=== PATIENT | male | born 1990 | race Caucasian/White ===

== ENCOUNTER 2017-09-21 11:13 | Inpatient (IN) | payer MEDICAID ==
[~2017-09-21] VITALS: Ht 180.3 cm; Wt 73.0 kg
[2017-09-21] MEDS ORDERED: morphine 4 MG/ML inj SYRINge IV ONE (12:00)
[2017-09-21] MEDS ORDERED: piperacillin/tazo 3.375gm/50ml 50 ML IV ONE (12:00)
[2017-09-21 12:27] LABS: BASOPHILS # (AUTO) 0.1 X10'3 (0-0.2); BASOPHILS % (AUTO) 0.5 % (0-1); EOSINOPHILS # (AUTO) 0.5 X10'3 (0-0.9); EOSINOPHILS % (AUTO) 2.8 % (0-6); HEMATOCRIT 44.2 % (42.0-52.0); HEMOGLOBIN 14.8 g/dl (14.0-17.9); LYMPHOCYTES # (AUTO) 1.7 X10'3 (1.1-4.8); LYMPHOCYTES % (AUTO) 10.4 % (21-51); MEAN CORPUSCULAR HEMOGLOBIN 28.4 PG (27.0-31.0); MEAN CORPUSCULAR HGB CONC 33.5 % (33.0-36.5); MEAN CORPUSCULAR VOLUME 84.6 FL (78-98); MEAN PLATELET VOLUME 7.4 FL (7.4-10.4); MONOCYTES % (AUTO) 6.2 % (2-12); NEUTROPHILS # (AUTO) 13.3 X10'3 (1.8-7.7); NEUTROPHILS % (AUTO) 80.1 % (42-75); PLATELET COUNT 303 X10'3 (140-440); RED BLOOD COUNT 5.22 X10'6 (4.70-6.10); WHITE BLOOD COUNT 16.6 X10'3 (4.5-11.0)
[2017-09-21 12:58] LABS: ALANINE AMINOTRANSFERASE 32 U/L (12-78); ALBUMIN 3.1 G/DL (3.4-5.0); ALBUMIN/GLOBULIN RATIO 0.7 (1.1-1.5); ALKALINE PHOSPHATASE 89 IU/L (46-116); ANION GAP 8 (8-16); ASPARTATE AMINO TRANSFERASE 19 U/L (10-37); BILIRUBIN,TOTAL 0.4 MG/DL (0.1-1.0); BLOOD UREA NITROGEN 7 MG/DL (7-18); BUN/CREATININE RATIO 7.2 (5.4-32.0); CHLORIDE 102 MMOL/L (99-107); CREATININE 0.97 MG/DL (0.60-1.10); GLUCOSE 112 MG/DL (70-104); MAGNESIUM 1.7 MG/DL (1.5-2.4); POTASSIUM 3.9 MMOL/L (3.5-5.1); SODIUM 140 MMOL/L (135-145); TOTAL CARBON DIOXIDE 29.8 MMOL/L (24-32); TOTAL PROTEIN 7.4 G/DL (6.4-8.2); eGFR > 90 ML/MIN
[2017-09-21] MEDS ORDERED: mag hydrox/Alum hydrox/simeth 30ml oral suspension PO PRN (13:30)
[2017-09-21] MEDS ORDERED: ondansetron/PF 4mg/2ml inj IV PRN (13:30)
[2017-09-21] MEDS ORDERED: magnesium hydroxide 30ml (MOM) UD suspension PO PRN (13:30)
[2017-09-21] MEDS ORDERED: acetaminophen 325mg tablet PO PRN (13:30)
[2017-09-21] MEDS ORDERED: morphine 4 MG/ML inj SYRINge IV PRN (13:30)
[2017-09-21] MEDS ORDERED: HYDROcodone/acetaminophen 5mg/325mg tablet PO PRN (13:30)
[2017-09-21 13:41] LABS: ETHANOL < 0.010 GM/DL (0.0-0.010)
[2017-09-21] MEDS: normal saline 1000ml 1,000 ML IV SCH ×2 (14:13→20:55)
[2017-09-21] MEDS: HYDROcodone/acetaminophen 10/325mg tab PO PRN ×2 (15:15→20:58)
[2017-09-21] MEDS: ceFAZolin 1GM/D5W- ADD-VANTAGE 50 ML IV SCH (15:15)
[2017-09-21] MEDS ORDERED: NO HOME MEDS (17:00)
[2017-09-21 18:30] VITALS: BP 120/65
[2017-09-21] MEDS: docusate sod 100mg capsule PO SCH (20:00)
[2017-09-21 22:30] VITALS: BP 123/73
[2017-09-22] MEDS: ceFAZolin 1GM/D5W- ADD-VANTAGE 50 ML IV SCH (00:19)
[2017-09-22] MEDS: HYDROcodone/acetaminophen 10/325mg tab PO PRN ×4 (05:16→22:52)
[2017-09-22 06:00] VITALS: BP 99/49
[2017-09-22 06:52] LABS: BASOPHILS % (AUTO) 0.4 % (0-1); EOSINOPHILS # (AUTO) 0.6 X10'3 (0-0.9); EOSINOPHILS % (AUTO) 4.7 % (0-6); HEMATOCRIT 43.4 % (42.0-52.0); HEMOGLOBIN 14.6 g/dl (14.0-17.9); LYMPHOCYTES # (AUTO) 1.6 X10'3 (1.1-4.8); MEAN CORPUSCULAR HEMOGLOBIN 28.6 PG (27.0-31.0); MEAN CORPUSCULAR HGB CONC 33.8 % (33.0-36.5); MEAN CORPUSCULAR VOLUME 84.6 FL (78-98); MEAN PLATELET VOLUME 7.6 FL (7.4-10.4); MONOCYTES # (AUTO) 1.1 X10'3 (0-0.9); MONOCYTES % (AUTO) 9.2 % (2-12); NEUTROPHILS # (AUTO) 8.7 X10'3 (1.8-7.7); NEUTROPHILS % (AUTO) 72.7 % (42-75); PLATELET COUNT 281 X10'3 (140-440); RED BLOOD COUNT 5.12 X10'6 (4.70-6.10); RED CELL DISTRIBUTION WIDTH 12.6 % (11.5-14.5); WHITE BLOOD COUNT 11.9 X10'3 (4.5-11.0)
[2017-09-22 07:00] LABS: ALBUMIN 2.5 G/DL (3.4-5.0); ANION GAP 5 (8-16); BLOOD UREA NITROGEN 11 MG/DL (7-18); BUN/CREATININE RATIO 10.8 (5.4-32.0); CALCIUM 8.4 MG/DL (8.5-10.1); CHLORIDE 106 MMOL/L (99-107); CREATININE 1.02 MG/DL (0.60-1.10); GLUCOSE 98 MG/DL (70-104); SODIUM 140 MMOL/L (135-145); TOTAL CARBON DIOXIDE 28.7 MMOL/L (24-32); eGFR 88 ML/MIN
[2017-09-22] MEDS: docusate sod 100mg capsule PO SCH ×2 (08:00→20:00)
[2017-09-22] MEDS ORDERED: vancomycin/NS 1 GM ADD-VANTAGE 250 ML IV SCH (08:25)
[2017-09-22] MEDS: vancomycin/NS 1 GM ADD-VANTAGE 250 ML IV SCH ×2 (09:25→17:35)
[2017-09-22] MEDS: normal saline 1000ml 1,000 ML IV SCH ×2 (09:25→22:52)
[2017-09-22 10:00] VITALS: BP 106/56
[2017-09-22] MEDS: enoxaparin 40mg/0.4ml syringe SQ SCH (17:35)
[2017-09-22 18:00] VITALS: BP 119/50
[2017-09-22 22:00] VITALS: BP 114/64
[2017-09-22] MEDS: lactobacillus rhamnosus 10,000 MMU CELLS/CAPSULE PO SCH (22:52)
[2017-09-23] MEDS: vancomycin/NS 1 GM ADD-VANTAGE 250 ML IV SCH ×2 (01:30→08:55)
[2017-09-23] MEDS: normal saline 1000ml 1,000 ML IV SCH (05:26)
[2017-09-23 05:36] LABS: ALBUMIN 2.5 G/DL (3.4-5.0); ANION GAP 5 (8-16); BLOOD UREA NITROGEN 9 MG/DL (7-18); BUN/CREATININE RATIO 10.2 (5.4-32.0); CALCIUM 8.5 MG/DL (8.5-10.1); CHLORIDE 106 MMOL/L (99-107); CREATININE 0.88 MG/DL (0.60-1.10); GLUCOSE 103 MG/DL (70-104); POTASSIUM 4.1 MMOL/L (3.5-5.1); SODIUM 141 MMOL/L (135-145); TOTAL CARBON DIOXIDE 30.5 MMOL/L (24-32); eGFR > 90 ML/MIN
[2017-09-23 05:44] LABS: BASOPHILS # (AUTO) 0.1 X10'3 (0-0.2); BASOPHILS % (AUTO) 0.6 % (0-1); EOSINOPHILS # (AUTO) 0.6 X10'3 (0-0.9); EOSINOPHILS % (AUTO) 6.2 % (0-6); HEMATOCRIT 43.6 % (42.0-52.0); HEMOGLOBIN 14.7 g/dl (14.0-17.9); LYMPHOCYTES # (AUTO) 2.2 X10'3 (1.1-4.8); LYMPHOCYTES % (AUTO) 21.5 % (21-51); MEAN CORPUSCULAR HEMOGLOBIN 28.3 PG (27.0-31.0); MEAN CORPUSCULAR HGB CONC 33.6 % (33.0-36.5); MEAN CORPUSCULAR VOLUME 84.2 FL (78-98); MEAN PLATELET VOLUME 7.7 FL (7.4-10.4); MONOCYTES % (AUTO) 9.6 % (2-12); NEUTROPHILS # (AUTO) 6.3 X10'3 (1.8-7.7); NEUTROPHILS % (AUTO) 62.1 % (42-75); PLATELET COUNT 297 X10'3 (140-440); RED BLOOD COUNT 5.18 X10'6 (4.70-6.10); RED CELL DISTRIBUTION WIDTH 13.1 % (11.5-14.5); WHITE BLOOD COUNT 10.1 X10'3 (4.5-11.0)
[2017-09-23 07:22] VITALS: BP 122/72
[2017-09-23] MEDS: docusate sod 100mg capsule PO SCH (08:00)
[2017-09-23] MEDS ORDERED: VANCOMYCIN LEVEL IV ONE (08:30)
[2017-09-23] MEDS: lactobacillus rhamnosus 10,000 MMU CELLS/CAPSULE PO SCH (08:54)
[2017-09-23] MEDS: enoxaparin 40mg/0.4ml syringe SQ SCH (08:55)
[2017-09-23] MEDS ORDERED: vancomycin inj 1,250 MG in normal saline 250ml IV soln 250 ML IV SCH (17:00)
[2017-09-23] MEDS ORDERED: DOXY100C43 PO (22:56)
[2017-09-23] MEDS ORDERED: CEPH-572 PO (22:56)
[2017-09-23] MEDS ORDERED: BACI28OI9 TP (23:39)
[2017-09-24] MEDS ORDERED: VANCOMYCIN LEVEL IV ONE (16:30)
== END 2017-09-23 09:00 | disposition left against medical advice (07) | DRG 383 ==
LOC: ER 11:14 → ED HOLD 13:26 → ORTHO 4S 17:05
PROVIDERS: ADMIT Internal Medicine; ATTEND Internal Medicine
DX: L03.115 Cellulitis of right lower limb (principal); F17.210 Nicotine dependence, cigarettes, uncomplicated; Z53.21 Procedure and treatment not carried out due to patient leaving prior to being seen by health care provider; F15.90 Other stimulant use, unspecified, uncomplicated; Z59.0 Homelessness
CPT/HCPCS: 36415; 71045; 80048; 80053; 80202; 80320; 83605; 83735; 84145; 85025; 87040; 87070; 93005; 93971; 99285; A6258; J0690; J1650; J2270; J3370; J7030

== ENCOUNTER 2017-09-23 16:11 | Emergency (ER) | payer MEDICAID ==
[~2017-09-23] VITALS: Ht 154.9 cm; Wt 75.8 kg
[~2017-09-23 16:11] MED LIST: NO HOME MEDS
[2017-09-23] MEDS ORDERED: normal saline 1000ML IV soln IVB ONE (22:35)
[2017-09-23] MEDS ORDERED: CefTRIAXone 2gm/D5W 50ml 50 ML IV ONE (22:40)
[2017-09-23] MEDS ORDERED: LIDOcaine 1.5% w/epinephrine 1:200,000 5ml ampul IJ ONE (22:40)
[2017-09-23] MEDS ORDERED: doxycycline hyclate 100mg tablet.DR PO ONE (22:45)
[2017-09-23] MEDS ORDERED: cephalexin 500mg capsule PO ONE (22:45)
[2017-09-23] MEDS ORDERED: TETanus/Pertussis (Acell)/Diphther VAC/PF (Tdap-Adult) 0.5ml syringe IM ONE (22:50)
[2017-09-23] MEDS ORDERED: CEPH-572 PO (22:56)
[2017-09-23] MEDS ORDERED: DOXY100C43 PO (22:56)
[2017-09-23] MEDS ORDERED: bacitracin 15gm ointment TP ONE (23:35)
[2017-09-23] MEDS ORDERED: BACI28OI9 TP (23:39)
[2017-09-23 23:58] VITALS: BP 111/59
== END 2017-09-24 00:10 | disposition home or self-care (01) ==
LOC: ER 16:11
DX: L02.415 Cutaneous abscess of right lower limb (principal); L03.115 Cellulitis of right lower limb; F15.10 Other stimulant abuse, uncomplicated; Z56.0 Unemployment, unspecified; Z79.899 Other long term (current) drug therapy
CPT/HCPCS: 10060; 90471; 90715; 96365; 99284; J0696; J7030